=== PATIENT | female | born 1955 | race Hispanic/Latino ===

== ENCOUNTER 2021-01-19 06:42 | Day surgery (SDC) | payer OTHER ==
[2021-01-19] VITALS (7 sets, daily range): BP systolic 92–146; BP diastolic 43–73
[~2021-01-19] VITALS: Ht 154.9 cm; Wt 56.2 kg
[~2021-01-19 06:42] MED LIST: 0.9%NACL 1000ML 1,000 ML IV ONE; LISI10TA24 PO; MV-M1TAB20 PO; ROSU20TA31 PO; SEMA7TAB PO
[2021-01-19] MEDS ORDERED: PROPOFOL 10 MG/ML 20ML VIAL IV ONE (08:28)
== END 2021-01-19 09:35 | disposition home or self-care (01) ==
LOC: DAH 06:42 → ENDO 06:42
PROVIDERS: ATTEND Internal Medicine Gastroenterology
DX: R63.4 Abnormal weight loss (principal); Z20.822 Contact with and (suspected) exposure to COVID-19; R68.81 Early satiety; K63.5 Polyp of colon; K62.1 Rectal polyp; K29.00 Acute gastritis without bleeding; R42 Dizziness and giddiness; E11.43 Type 2 diabetes mellitus with diabetic autonomic (poly)neuropathy; I10 Essential (primary) hypertension; E03.9 Hypothyroidism, unspecified; E78.5 Hyperlipidemia, unspecified; K31.84 Gastroparesis; Z90.710 Acquired absence of both cervix and uterus; Z90.49 Acquired absence of other specified parts of digestive tract; Z98.891 History of uterine scar from previous surgery; Z68.23 Body mass index [BMI] 23.0-23.9, adult
CPT/HCPCS: 43239; 45380; 45385; 82948 ×2; 87635; A4215; A4221; A4222; A4223; A4606; A4620; A4657; A4663; C9803; J2704; J7030